=== PATIENT | male | born 1950 | race Caucasian/White ===

== ENCOUNTER 2016-03-16 08:04 | Day surgery (SDC) | payer BC, OTHER ==
[~2016-03-16] VITALS: Ht 170.2 cm; Wt 44.5 kg
[~2016-03-16 08:04] MED LIST: CEFAZOLIN 1 GM IVPB PREMIX 50 ML IV ONE
[2016-03-16 08:40] VITALS: O2SAT 96
[2016-03-16] MEDS ORDERED: LR 1,000 ML IV.SOLN IV ONE (09:00)
[2016-03-16] MEDS ORDERED: NS 1000 ML BAG IV ONE (09:00)
[2016-03-16] MEDS ORDERED: MIDAZOLAM HCL 5 MG/5 ML VIAL IVP ONE (09:00)
[2016-03-16] MEDS ORDERED: ePHEDrine sulfate 50 MG/ML VIAL IV ONE (09:00)
[2016-03-16] MEDS ORDERED: POLYMYXIN 500,000/BACIT.10,000 UNITS in NS IRR 1 L IR ONE (09:03)
[2016-03-16] MEDS ORDERED: LR 1,000 ML IV SCH (09:56)
[2016-03-16] MEDS ORDERED: ONDANSETRON HCL 4 MG/2 ML VIAL IVP PRN (10:00)
[2016-03-16] MEDS ORDERED: D5/0.45 NS 1,000 ML IV SCH (10:08)
[2016-03-16] MEDS ORDERED: HYDROcodone/ACETAMIN 5-325 MG TAB (NORCO/ VICODIN) PO PRN ×2 (10:15)
[2016-03-16] MEDS ORDERED: HYDROmorphone 1 MG INJ. 1 MG/ML AMPUL IVP PRN (10:15)
[2016-03-16 11:28] VITALS: BP 114/77; PULSE 82; RESP 16
[2016-03-16] MEDS ORDERED: HYDROcodone/ACETAMIN 5-325 MG TAB (NORCO/ VICODIN) ONE (15:42)
== END 2016-03-16 17:12 | disposition home or self-care (01) ==
LOC: SDS 08:04 → SMU 08:07 → EDUNIT# 11:05 → EDSTATUS 11:05 → SDS 17:12
PROVIDERS: ATTEND Colon & Rectal Surgery
DX: K40.90 Unilateral inguinal hernia, without obstruction or gangrene, not specified as recurrent (principal); N43.3 Hydrocele, unspecified; J44.9 Chronic obstructive pulmonary disease, unspecified; E46 Unspecified protein-calorie malnutrition; M19.90 Unspecified osteoarthritis, unspecified site; G89.29 Other chronic pain
CPT/HCPCS: 49505; 55500; 88302; C1781; J0690; J2250; J7030; J7120

== ENCOUNTER 2019-02-24 19:07 | Inpatient (IN) | payer BC, OTHER ==
[~2019-02-24] VITALS: Ht 170.2 cm; Wt 44.9 kg
[2019-02-24 19:10] VITALS: BP_SYST 137
--- NOTE | 2019-02-24 19:11 | NUR ---
Placed in room 6 . Placed on quality assurance monitor chassis, blood pressure machine and pulse oximeter. To gown for exam. Side rails up. Report given to JOSE WATOSN.
--- NOTE | 2019-02-24 19:13 | NUR ---
ER at bedside examining patient.
[2019-02-24] MEDS ORDERED: ALBUTEROL SULFATE 0.083% 2.5 MG/3 ML VIAL.NEB INH ONE (19:30)
[2019-02-24] MEDS ORDERED: IPRATROPIUM BROM 0.5 MG/2.5 ML VIAL.NEB (ATROVENT) INH ONE (19:30)
--- NOTE | 2019-02-24 19:31 | NUR ---
RT at bedside.
--- NOTE | 2019-02-24 19:40 | NUR ---
Pt BIB EMS from [facility] with c/o SOB, cough and congestion. Pt family states pt was admitted to [facility] last Wednesday for same reason. Family states pt was discharged today and was at [facility] for "about 3 hours". Pt family states cough and congestion started approximately 1 week ago. Pt denies chest pain, fever, nausea and vomiting. Will continue to monitor.
--- NOTE | 2019-02-24 19:51 | NUR ---
ER Dr. Bell at bedside examining patient.
[2019-02-24 20:01] LABS: BASOPHILS % (AUTO) 0.4 % (0.0-2.0); HEMATOCRIT 39.8 % (36-54); HEMOGLOBIN 12.8 g/dL (14.0-18.0); LYMPHOCYTES # (AUTO) 0.2 K/uL (1.0-5.5); LYMPHOCYTES % (AUTO) 1.3 % (20.5-51.5); MEAN CORPUSCULAR HEMOGLOBIN 29 pg (27-31); MEAN CORPUSCULAR HGB CONC 32 % (32-36); MEAN CORPUSCULAR VOLUME 91 fL (79.0-98.0); MONOCYTES # (AUTO) 0.5 K/uL (0.0-1.0); MONOCYTES % (AUTO) 3.9 % (1.7-9.3); NEUTROPHILS # (AUTO) 11.8 K/uL (1.8-7.7); NEUTROPHILS % (AUTO) 94.4 % (40.0-70.0); PLATELET COUNT (AUTO) 140 K/uL (130-430); RED BLOOD CELL COUNT(AUTO) 4.35 MIL/uL (4.2-6.2); RED CELL DISTRIBUTION WIDTH 14.3 % (9.0-15.0); WHITE BLOOD COUNT (AUTO) 12.5 K/uL (4.8-10.8)
[2019-02-24 20:11] LABS: CALCIUM 8.2 mg/dL (8.4-11.0); CREATININE 0.52 mg/dL (0.55-1.30); POTASSIUM 4.1 mmol/L (3.5-5.1)
[2019-02-24 20:17] LABS: ALBUMIN 2.9 g/dL (3.4-4.8); TOTAL BILIRUBIN 0.2 mg/dL (0.0-1.0)
[2019-02-24] MEDS ORDERED: methylPREDNISolone SOD SUCC/PF 62.5 MG/ML VIAL IVP ONE (20:45)
--- NOTE | 2019-02-24 20:58 | NUR ---
# 18 gauge angiocath placed to Left forearm. Use of asceptic technique. Opsite placed over site. Blood return noted. Flushed with 10 cc of normal saline. No evidence of infiltration noted. Patient tolerated well.
[2019-02-24] MEDS ORDERED: cefTRIAXone 1 GM IVPB PREMIX 50 ML IV ONE (21:15)
--- NOTE | 2019-02-24 21:32 | NUR ---
Lab at bedside.
--- NOTE | 2019-02-24 21:44 | NUR ---
Pt medicated per MD orders. Pt tolerated well. Will continue to monitor.
[2019-02-24] MEDS ORDERED: LOVI40 SQ (22:47)
[2019-02-24] MEDS ORDERED: BISA-79 PO (22:47)
[2019-02-24] MEDS ORDERED: AZIT500T3 IVPB (22:47)
[2019-02-24] MEDS ORDERED: ONDA4TAB5 IVP (22:47)
[2019-02-24] MEDS ORDERED: ROCPM1 IV (22:47)
[2019-02-24] MEDS ORDERED: ALPR0.25 PO (22:47)
[2019-02-24] MEDS ORDERED: ACET-2165 PO (22:47)
[2019-02-24] MEDS ORDERED: TRAM100T34 PO (22:47)
[2019-02-24] MEDS ORDERED: NALO0.4S IVP (22:47)
[2019-02-24] MEDS ORDERED: IPRA3AMP9 INH (22:47)
[2019-02-24] MEDS ORDERED: GUAI-723 PO (22:47)
[2019-02-24] MEDS ORDERED: MORP1SYR2 IVP (22:47)
[2019-02-24] MEDS ORDERED: SOLI40 IVP (22:47)
[2019-02-24] MEDS ORDERED: DILT240C91 PO (22:47)
[2019-02-24] MEDS ORDERED: BECL10.62 INH (22:47)
[2019-02-24] MEDS ORDERED: FAMO20TA8 PO (22:47)
--- NOTE | 2019-02-24 22:47 | NUR ---
Medication reconciliation completed with information provided by Yoni Malik. Any prior medication reconciliation on file was reviewed and corrected.
--- NOTE | 2019-02-24 23:50 | NUR ---
Patient resting quietly with family at bedside. No acute distress noted. Vital signs within normal range. Will continue to monitor.
[2019-02-25] VITALS (21 sets, daily range): BP systolic 91–129
[2019-02-25] MEDS ORDERED: NACL 0.9% 1,000 ML IV ONE
--- NOTE | 2019-02-25 00:54 | NUR ---
Pt medicated per MD orders. Pt tolerated well.
--- NOTE | 2019-02-25 01:46 | NUR ---
Pt transfered to bed 2. Will continue to monitor.
--- NOTE | 2019-02-25 01:54 | NUR ---
RT at bedside putting pt on bipap.
--- NOTE | 2019-02-25 02:57 | NUR ---
Patient will be admitted to [facility]. Admitted to ICU unit. Will go to room 6. Belongings list completed. Complete and up to date summary report printed. SBAR report to be given at bedside with opportunity for questions.
--- NOTE | 2019-02-25 02:57 | NUR ---
Transfer to ICU bed 6 via ACLS protocol. Licensed nurse present. IV present no signs or symptoms of infiltration.
--- NOTE | 2019-02-25 03:15 | NUR ---
Received patient from ER via gurney. Report received from ER nurse. Patient connected to director special education, repositioned for comfort and initial vital signs taken. L FA IV site noted patent. RT at bedside to place patient on bipap with settings I 11, E 4, Rate 14 , FIO2 100% via face mask. Dr Saab at bedside for initial assessment as primary physician. call light within reach, bed set at lowest settings. will continue to monitor as per MD orders.
[2019-02-25] MEDS ORDERED: ALBUTEROL SULFATE 0.083% 2.5 MG/3 ML VIAL.NEB INH PRN (04:00)
[2019-02-25] MEDS ORDERED: ACETAMINOPHEN 325 MG TABLET PO SCH (04:00)
[2019-02-25] MEDS ORDERED: BISACODYL 5 MG TABLET.DR (DULCOLAX) PO PRN (05:00)
--- NOTE | 2019-02-25 06:24 | NUR ---
Tolerating bipap settings with 100 % saturations. easy to arouse and responding to verbal commands. Condom catheter in place draining yellow urine. will continue to monitor.
[2019-02-25 06:49] LABS: BASOPHILS % (AUTO) 0.1 % (0.0-2.0); HEMATOCRIT 33.7 % (36-54); HEMOGLOBIN 11.1 g/dL (14.0-18.0); LYMPHOCYTES # (AUTO) 0.2 K/uL (1.0-5.5); LYMPHOCYTES % (AUTO) 1.5 % (20.5-51.5); MEAN CORPUSCULAR HEMOGLOBIN 30 pg (27-31); MEAN CORPUSCULAR HGB CONC 33 % (32-36); MEAN CORPUSCULAR VOLUME 92 fL (79.0-98.0); MONOCYTES # (AUTO) 0.5 K/uL (0.0-1.0); MONOCYTES % (AUTO) 4.3 % (1.7-9.3); NEUTROPHILS # (AUTO) 10.2 K/uL (1.8-7.7); NEUTROPHILS % (AUTO) 94.1 % (40.0-70.0); PLATELET COUNT (AUTO) 123 K/uL (130-430); RED BLOOD CELL COUNT(AUTO) 3.68 MIL/uL (4.2-6.2); RED CELL DISTRIBUTION WIDTH 13.8 % (9.0-15.0); WHITE BLOOD COUNT (AUTO) 10.8 K/uL (4.8-10.8)
[2019-02-25] MEDS: methylPREDNISolone SOD SUCC 40 MG/ML VIAL IVP SCH ×3 (06:55→18:27)
--- NOTE | 2019-02-25 07:15 | NUR ---
Endorsed report and patient, patient in no acute distress. Side rails x 3 up. Call light with in reach.
[2019-02-25 08:18] LABS: ALBUMIN 2.4 g/dL (3.4-4.8); CALCIUM 7.8 mg/dL (8.4-11.0); CREATININE 0.48 mg/dL (0.55-1.30); POTASSIUM 4.1 mmol/L (3.5-5.1); TOTAL BILIRUBIN 0.2 mg/dL (0.0-1.0)
--- NOTE | 2019-02-25 08:40 | NUR ---
Nutrition Update Chai Scale 15 noted. Pt admitted for respiratory failure. Diet: 2 gm Na BMI: 15.5 kg/m2 RD to follow per nutrition care standards.
--- NOTE | 2019-02-25 08:50 | NUR ---
RT NOTES - 30%FIO2 DECREASED FIO2 FROM 75% TO 30% BASED ON AM ABG RESULT. SHIRLEY OLSON MADE AWARE.
[2019-02-25] MEDS ORDERED: FAMOTIDINE 20 MG TABLET PO SCH (09:00)
[2019-02-25] MEDS: guaiFENesin/DEXTROMETHORPHAN 1 EACH TAB.ER.12H PO SCH ×2 (09:00→21:57)
--- NOTE | 2019-02-25 09:30 | NUR ---
Reported to MD Stewart patient in ability to take medications due to bipap, new order to hold off medications till off Bipap, to change pepcid po to ivp 20 mg twice a day. Orders placed.
[2019-02-25] MEDS ORDERED: BUDESONIDE 0.5 MG/2 ML AMPUL.NEB INH ONE (10:30)
[2019-02-25] MEDS: DILTIAZEM HCL 240 MG CAP.SR.24H PO SCH (11:00)
[2019-02-25] MEDS: ALPRAZolam 0.25 MG TABLET PO PRN (11:01)
[2019-02-25] MEDS: AZITHROMYCIN 500 MG in NS 250 ML IV SCH (11:01)
[2019-02-25] MEDS: ENOXAPARIN SODIUM 40 MG/0.4 ML SYRINGE SQ SCH (11:02)
[2019-02-25] MEDS: ONDANSETRON HCL 4 MG/2 ML VIAL IVP PRN (11:02)
[2019-02-25] MEDS: IPRATROPIUM/ALBUTEROL SULFATE 3 ML AMPUL.NEB (DUONEB) INH PRN (11:04)
[2019-02-25] MEDS: HYDROcodone/ACETAMIN 10-325 MG TAB PO PRN (12:24)
[2019-02-25] MEDS ORDERED: FAMOTIDINE PF 20 MG/2 ML VIAL IVP ONE ×2 (12:30→21:00)
--- NOTE | 2019-02-25 12:30 | NUR ---
Patient complaining of pain from IV line when normal saline flushed or ABT running through, patient requesting PICC line. MD Stewart notified, orders approved. PICC nurse notified.
[2019-02-25] MEDS: FAMOTIDINE PF 20 MG/2 ML VIAL IVP SCH (12:33)
[2019-02-25] MEDS ORDERED: KETOROLAC TROMETHAMINE 30 MG VIAL IVP PRN (12:45)
[2019-02-25 13:13] LABS: AMYLASE 82 U/L (0-100); LIPASE 439 U/L (73-393)
--- NOTE | 2019-02-25 15:40 | NUR ---
PICC line consent signed.
--- NOTE | 2019-02-25 16:30 | NUR ---
PICC line placed on right upper arm.
--- NOTE | 2019-02-25 18:45 | NUR ---
Patient requesting mckeon catheter originally offered in ER, will endorse to NOC shift nurse.
[2019-02-25] MEDS ORDERED: BUDESONIDE 0.5 MG/2 ML AMPUL.NEB INH SCH (19:00)
--- NOTE | 2019-02-25 19:25 | NUR ---
Gave report and patient to oncoming shift, patient in no acute distress. Side rails x 3 up. Call light with in reach. Addendum: 02/25/19 at 3 by Vianca Clinton RN Reported patient's request for mckeon catheter insertion originally offered at ER.
--- NOTE | 2019-02-25 19:40 | NUR ---
initial note PM Received patient after report from day shift nurse Savannah WATSON. Patient resting in bed with eyes closed. Following commands and able to verbalize complaints. Denies pain at this time, repositioned for comfort. Family at bedside x2. In nasal canula 3 L/min and tolerating well. Orders to use bipap at night. Condom catheter in place draining yellow urine to gravity. Picc line in place LANCE with dressing CDI. Call light within reach; bed at lowest settings; repositioned for comfort. will continue to monitor patient as per unit protocol.
[2019-02-25] MEDS ORDERED: cefTRIAXone 1 GM IVPB PREMIX 50 ML IV SCH (22:00)
[2019-02-25] MEDS: CEFTRIAXONE SOD 1 GM/ D5W 50 ML IV SCH ×2 (22:00)
--- NOTE | 2019-02-25 22:15 | NUR ---
complying with treatment. No signs of respiratory decompensation noted as patient tolerating bipap settings. family going home; contact information in chart. will continue to monitor.
[2019-02-26] VITALS (24 sets, daily range): BP systolic 12–137
[2019-02-26] MEDS: methylPREDNISolone SOD SUCC 40 MG/ML VIAL IVP SCH ×2 (01:54→06:17)
--- NOTE | 2019-02-26 02:00 | NUR ---
Resting comfortably in bed. Tolerating Bipap settings. Easy to arouse and following commands with no signs of confusion noted. Patient was repositioned for comfort without any signs of discomfort or distress. will continue to monitor.
--- NOTE | 2019-02-26 05:00 | NUR ---
Condom catheter became dislodged and urine spilled. patient was given CHG bath and perineal care provided. New condom catheter was placed with patient tolerating procedure well. Bipap was discontinued at this time as per patient's request and nasal canula @ 3 L/min placed instead. O 2 saturations 100% and patient denies respiratory discomfort. Will continue to monitor per unit protocol.
[2019-02-26] MEDS: AZITHROMYCIN 500 MG in NS 250 ML IV SCH (06:18)
[2019-02-26 06:46] LABS: ALBUMIN 2.6 g/dL (3.4-4.8); CALCIUM 7.9 mg/dL (8.4-11.0); CREATININE 0.44 mg/dL (0.55-1.30); POTASSIUM 4.4 mmol/L (3.5-5.1); TOTAL BILIRUBIN 0.3 mg/dL (0.0-1.0)
[2019-02-26 06:52] LABS: BASOPHILS % (AUTO) 0.1 % (0.0-2.0); HEMATOCRIT 37.2 % (36-54); LYMPHOCYTES # (AUTO) 0.2 K/uL (1.0-5.5); LYMPHOCYTES % (AUTO) 1.6 % (20.5-51.5); MEAN CORPUSCULAR HEMOGLOBIN 30 pg (27-31); MEAN CORPUSCULAR HGB CONC 32 % (32-36); MEAN CORPUSCULAR VOLUME 92 fL (79.0-98.0); MONOCYTES # (AUTO) 0.4 K/uL (0.0-1.0); MONOCYTES % (AUTO) 3.2 % (1.7-9.3); NEUTROPHILS # (AUTO) 11.6 K/uL (1.8-7.7); NEUTROPHILS % (AUTO) 95.1 % (40.0-70.0); PLATELET COUNT (AUTO) 132 K/uL (130-430); RED BLOOD CELL COUNT(AUTO) 4.04 MIL/uL (4.2-6.2); RED CELL DISTRIBUTION WIDTH 13.5 % (9.0-15.0); WHITE BLOOD COUNT (AUTO) 12.2 K/uL (4.8-10.8)
--- NOTE | 2019-02-26 07:03 | NUR ---
call out for Dr Fleming Received report from lab CO2 43. Previous CO2 40. Call out to Dr Fleming to report abnormal labs.
[2019-02-26] MEDS: HYDROcodone/ACETAMIN 10-325 MG TAB PO PRN (08:00)
--- NOTE | 2019-02-26 08:00 | NUR ---
AM ASSESSMENT. PT ALERT, ON O2 VIA NASAL CANNULA, PT PREFERS TO USE THIS THRU HIS MOUTH, VERBALIZED PAIN TO LOWER BACK, OFFERED PAIN PILL, TOOK 1 TABLET OF NORCO 5/325 MG FOR SCALE OF 7/10. PT ENCOURAGED TO CHANGE HIS POSITION WHILE IN BED, POSSIBLY SIDE LYING. PT GAVE A SWEET SMILE.
[2019-02-26] MEDS: ENOXAPARIN SODIUM 40 MG/0.4 ML SYRINGE SQ SCH (09:05)
[2019-02-26] MEDS: FAMOTIDINE PF 20 MG/2 ML VIAL IVP SCH ×2 (09:06→20:54)
[2019-02-26] MEDS: DILTIAZEM HCL 240 MG CAP.SR.24H PO SCH (09:07)
[2019-02-26] MEDS: guaiFENesin/DEXTROMETHORPHAN 1 EACH TAB.ER.12H PO SCH ×2 (09:08→20:54)
[2019-02-26] MEDS: IPRATROPIUM/ALBUTEROL SULFATE 3 ML AMPUL.NEB (DUONEB) INH PRN (10:03)
--- NOTE | 2019-02-26 10:30 | NUR ---
MANAGER BABY. DR CHING AT BEDSIDE EXAMINING PT.
[2019-02-26 11:18] LABS: ALBUMIN 2.6 g/dL (3.4-4.8); CALCIUM 8.1 mg/dL (8.4-11.0); CREATININE 0.52 mg/dL (0.55-1.30); POTASSIUM 4.1 mmol/L (3.5-5.1); TOTAL BILIRUBIN 0.3 mg/dL (0.0-1.0)
--- NOTE | 2019-02-26 12:20 | NUR ---
TEST. PT HAVING AN ECHOCARDIOGRAM AT HIS HOUR.
[2019-02-26] MEDS: methylPREDNISolone SOD SUCC/PF 62.5 MG/ML VIAL IVP SCH ×2 (13:32→21:53)
--- NOTE | 2019-02-26 13:46 | NUR ---
FAMILY. PT SURROUNDED BY HIS FAMILY. SOME BROUGHT HIM SNACK BAG.
--- NOTE | 2019-02-26 18:00 | NUR ---
DIET. SERVED PT HIS DINNER TRAY, PT SAT UP IN THE BED, THEN HE STARTED TO TASTE SOME FROM THE PLATE.
--- NOTE | 2019-02-26 18:40 | NUR ---
O2. PT COMPLAINED THAT HE'S NOT FEELING OK, SET UP BIPAP, R.T. AT BEDSIDE, PT ALLOWED TO USE BIPAP.
--- NOTE | 2019-02-26 19:30 | NUR ---
PM SHIFT ASSESSMENT Pt is alert and oriented. O2 via BIPAP, RR even and unlabored. SR noted on monitor. Skin warm and dry. LANCE PICC line with TKO infusing. Condom cath in place and draining to gravity. Safety precautions in place, call light within reach. Family at bedside. Will continue to monitor.
[2019-02-26] MEDS: ALPRAZolam 0.25 MG TABLET PO PRN (20:54)
[2019-02-26] MEDS: CEFTRIAXONE SOD 1 GM/ D5W 50 ML IV SCH ×2 (21:53)
[2019-02-27] VITALS (24 sets, daily range): BP systolic 90–144
[2019-02-27] MEDS: methylPREDNISolone SOD SUCC/PF 62.5 MG/ML VIAL IVP SCH ×3 (05:33→21:54)
[2019-02-27] MEDS: AZITHROMYCIN 500 MG in NS 250 ML IV SCH (05:34)
[2019-02-27 06:38] LABS: BASOPHILS % (AUTO) 0.2 % (0.0-2.0); HEMOGLOBIN 11.4 g/dL (14.0-18.0); LYMPHOCYTES # (AUTO) 0.2 K/uL (1.0-5.5); LYMPHOCYTES % (AUTO) 1.5 % (20.5-51.5); MEAN CORPUSCULAR HEMOGLOBIN 30 pg (27-31); MEAN CORPUSCULAR HGB CONC 33 % (32-36); MEAN CORPUSCULAR VOLUME 92 fL (79.0-98.0); MONOCYTES # (AUTO) 0.4 K/uL (0.0-1.0); NEUTROPHILS # (AUTO) 11.8 K/uL (1.8-7.7); NEUTROPHILS % (AUTO) 95.3 % (40.0-70.0); PLATELET COUNT (AUTO) 122 K/uL (130-430); RED BLOOD CELL COUNT(AUTO) 3.82 MIL/uL (4.2-6.2); RED CELL DISTRIBUTION WIDTH 13.6 % (9.0-15.0); WHITE BLOOD COUNT (AUTO) 12.3 K/uL (4.8-10.8)
--- NOTE | 2019-02-27 07:01 | NUR ---
Nutrition Update Chai Scale 16 noted. Pt admitted for Respiratory failure Diet: 2gm Na BMI: 15.5 kg/m2 RD to follow per nutrition care standards.
--- NOTE | 2019-02-27 07:09 | NUR ---
ENDORSEMENT Pt care endorsed to dayshift RN using nursing SBAR.
[2019-02-27 07:11] LABS: ALANINE AMINOTRANSFERASE 130 U/L (12-78); ALBUMIN 2.3 g/dL (3.4-4.8); ASPARTATE AMINOTRANSFERASE 23 U/L (10-37); CHLORIDE 104 mmol/L (98-107); CREATININE 0.32 mg/dL (0.55-1.30); GLUCOSE 126 mg/dL (70-99); POTASSIUM 4.4 mmol/L (3.5-5.1); SODIUM SERUM 143 mmol/L (136-145); TOTAL BILIRUBIN 0.2 mg/dL (0.0-1.0); UREA NITROGEN, BLOOD 25 mg/dL (8-21)
[2019-02-27 07:20] LABS: GFR AFRICAN AMERICAN 355 mL/min (>90)
[2019-02-27 07:21] LABS: ANION GAP < 3 (5-15)
--- NOTE | 2019-02-27 08:00 | NUR ---
PT AWAKE AND ALERT WHEN SEEN, NOT IN ACUTE DISTRESS. SPO2 GOOD ON O2 3L/MIN VIA NC. SINUS RHYTHM ON THE MONITOR. DENIES ANY DISCOMFORT.
--- NOTE | 2019-02-27 09:00 | NUR ---
Abdominal Ultrasound done.
[2019-02-27] MEDS: FAMOTIDINE PF 20 MG/2 ML VIAL IVP SCH ×2 (09:49→20:16)
[2019-02-27] MEDS: DILTIAZEM HCL 240 MG CAP.SR.24H PO SCH (09:50)
[2019-02-27] MEDS: ENOXAPARIN SODIUM 40 MG/0.4 ML SYRINGE SQ SCH (09:51)
[2019-02-27] MEDS: guaiFENesin/DEXTROMETHORPHAN 1 EACH TAB.ER.12H PO SCH ×2 (09:51→20:16)
--- NOTE | 2019-02-27 10:30 | NUR ---
Family at bedside, updated on pt present condition. Pt assisted with breakfast.
--- NOTE | 2019-02-27 11:30 | NUR ---
Received report from Kemi WATSON. Assessment done. Pt is awake, alert and oriented. Respiration is regular, SOB on exertion. O2 at 3L/NC.Scope shows NSR, no ectopics. Condom cath in place and draining well. Family at bedside.
--- NOTE | 2019-02-27 13:28 | NUR ---
Dietitian Recommendations *Continue 2gm Na diet per MD. *Consider supplemental PPN to meet estimated needs and promote weight gain. Please see Nutritional Assessment for details. FERNANDA, RD
[2019-02-27] MEDS: ALBUTEROL SULFATE 0.083% 2.5 MG/3 ML VIAL.NEB INH SCH ×2 (14:01→19:37)
[2019-02-27] MEDS: IPRATROPIUM BROM 0.5 MG/2.5 ML VIAL.NEB (ATROVENT) INH SCH ×2 (14:07→19:37)
--- NOTE | 2019-02-27 14:16 | NUR ---
[employer] Supervisor: met with pt. to conduct a Discharge Summary. AGRICULTURAL PRODUCE PACKER met with pt. who had a friend visiting. Pt stated he was up for some questions. During interview, pt. stated he wants to get back on his feet, go back home and have more muscle mass as he feels weak. Pt. wants to feel his strength back. He stopped walking 9 days ago. Pt. wants to get back on his feet. Pt. stated he may need oxygen at his home upon D/C. When AGRICULTURAL PRODUCE PACKER asked pt. about mental health and if he had any Dx., pt. stated his PCP had prescribed him medication as he had been Dx. with Depression. Pt stated he had been Dx. with Depression last year and was prescribed prozact, but no longer takes it. She added he had been recently Dx. with Axiety, but prescribed him another medication. He stated he continues to take if. Pt. said he feels as though he needs to be back on his medication for Depression and if he does go back on it, he will need the medication for anxiety. AGRICULTURAL PRODUCE PACKER noticed pt. was breathing a little labored. Pt. stated all of AGRICULTURAL PRODUCE PACKER's questions have stressed him out. AGRICULTURAL PRODUCE PACKER spoke calmly to him and stated he was done. AGRICULTURAL PRODUCE PACKER thanked him for all his assistance and told him she was leaving so he can rest. Pt. did not have any questions. AGRICULTURAL PRODUCE PACKER mentioned this info to his Rn.Angie, that pt. was feeling stressed as well as having a Dx. with Depression and Anxiety. Shaw agreed to pass on the info the re. Addendum: 02/27/19 at 1427 by Helena Krishnan MSW [employer] Supervisor:batsheva AGRICULTURAL PRODUCE PACKER had asked pt. if he had ever felt like harming himself. Pt. stated he had never felt that way.
--- NOTE | 2019-02-27 14:25 | NUR ---
Patient complained of having difficulty of breathing, using accessory muscles, RT at bedside, placed pt on BIPAP. Instructed pt to take slow deep breathes.Repositions self.
--- NOTE | 2019-02-27 16:30 | NUR ---
Daughter at bedside. Pt stated he's breathing better, requested to remove BIPAP, placed back on 3L/NC.
--- NOTE | 2019-02-27 18:00 | NUR ---
TAKING REST PERIODS IN BETWEEN BITES DURING MEAL. O2 SAT >95%. URINE OUTPUT ADEQUATE. NSR, NO ECTOPICS.
--- NOTE | 2019-02-27 19:55 | NUR ---
Opening Note Pt in bed AAO. SR/ST on the monitor. Pt is on 3L NC, C/O of difficulty breathing, RT called for breathing Tx. Pt has LANCE PICC in place, and LFA 20g noted. IV sites C/D/I. No s/s of infiltration noted. Pt has condom catheter in place, no leakage noted. No c/o of pain at this time. Bed locked in lowest position, call light in reach and safety precautions in place. Will continue to monitor.
[2019-02-27] MEDS: ALPRAZolam 0.25 MG TABLET PO PRN (20:16)
--- NOTE | 2019-02-27 20:25 | NUR ---
Pt received breathing Tx, tolerated well. Pulled up in bed and readjusted. No s/s of distress noted. Pt not c/ o of difficulty breathing at this time. Will continue to monitor.
[2019-02-27] MEDS: CEFTRIAXONE SOD 1 GM/ D5W 50 ML IV SCH ×2 (21:54)
[2019-02-28] VITALS (16 sets, daily range): BP systolic 97–148
--- NOTE | 2019-02-28 00:12 | NUR ---
RN Rounds Pt in bed asleep. No s/s of distress noted. VSS, w/ HR elevating into the 110-120s periodically. Pt remains asymptomatic. Denies any SOB, or CP. Currently on 3L NC. Will continue to monitor.
[2019-02-28] MEDS: IPRATROPIUM BROM 0.5 MG/2.5 ML VIAL.NEB (ATROVENT) INH SCH ×2 (01:00→20:07)
[2019-02-28] MEDS: ALBUTEROL SULFATE 0.083% 2.5 MG/3 ML VIAL.NEB INH SCH ×2 (01:00→20:07)
--- NOTE | 2019-02-28 03:16 | NUR ---
RN Rounds Pt in bed asleep. No s/s of distress noted. Pt VSS. Tolerating NC @3L well. Will continue to monitor.
[2019-02-28 06:03] LABS: CHLORIDE 103 mmol/L (98-107); CREATININE 0.45 mg/dL (0.55-1.30); GLUCOSE 129 mg/dL (70-99); POTASSIUM 4.1 mmol/L (3.5-5.1); SODIUM SERUM 139 mmol/L (136-145); UREA NITROGEN, BLOOD 28 mg/dL (8-21)
[2019-02-28] MEDS: AZITHROMYCIN 500 MG in NS 250 ML IV SCH (06:06)
[2019-02-28] MEDS: HYDROcodone/ACETAMIN 10-325 MG TAB PO PRN (06:07)
[2019-02-28] MEDS: methylPREDNISolone SOD SUCC/PF 62.5 MG/ML VIAL IVP SCH ×3 (06:07→21:39)
--- NOTE | 2019-02-28 06:23 | NUR ---
Closing Note Pt in bed, AAO. SR/ST on the monitor. Pt on 3L NC, no s/s of distress noted. Pt has LANCE PICC LINE and Peripheral IV. No s/s of infiltration noted. Pt has condom catheter in place, draining urine to gravity. PRN Pain medication given for leg pain and chronic back pain. Pt able to make needs known. Skin intact. Bed locked in lowest position, call light in reach, and safety preacautions in place. Will endorse to oncoming RN.
[2019-02-28 06:28] LABS: ANION GAP < 3 (5-15); GFR AFRICAN AMERICAN 239 mL/min (>90)
--- NOTE | 2019-02-28 07:13 | NUR ---
RECEIVED NURSING REPORT FROM AGUSTINA KOO R.N
--- NOTE | 2019-02-28 07:19 | NUR ---
Endorsement Report given to oncoming RN at bedside via SBAR approach.
--- NOTE | 2019-02-28 08:35 | NUR ---
SEE PATIENT, ORDERED DOWN GRADE TO TELE STATUS
[2019-02-28] MEDS: DILTIAZEM HCL 240 MG CAP.SR.24H PO SCH (09:00)
[2019-02-28] MEDS: guaiFENesin/DEXTROMETHORPHAN 1 EACH TAB.ER.12H PO SCH ×2 (09:13→20:28)
[2019-02-28] MEDS: FAMOTIDINE PF 20 MG/2 ML VIAL IVP SCH ×2 (09:14→20:15)
[2019-02-28] MEDS: ENOXAPARIN SODIUM 40 MG/0.4 ML SYRINGE SQ SCH (09:16)
--- NOTE | 2019-02-28 11:13 | NUR ---
GIVE COMPLETE NURSING REPORT TO MED-SURG IRVING Marshall ORDERED TRANSFER PATIENT TO TELE BED 102 A
--- NOTE | 2019-02-28 11:35 | NUR ---
Routine Patient transferred to unit in stable condition with daughters (x2) at bedside.
--- NOTE | 2019-02-28 14:05 | NUR ---
Routine Patient resting quietly in bed with no respiratory distress noted. Scheduled medication given. Left forearm skin tear cleansed with NS, sure prep applied to periwound, hydrogel applied to wound, then covered with non-adhesive foam dressing and kerlix. Patient tolerated well. Daughter at bedside. Addendum: 02/28/19 at 1419 by Marianela Tinoco RN Patient prefers to be in supine position. Explained benefits of repositioning every two hours; patient and daughter verbalized understanding. Foam protection pad placed on coccyx earlier.
--- NOTE | 2019-02-28 15:15 | NUR ---
Patient received a/ox4, denies pain, denies shortness of breath, patient's family is at bedside, instructed the patient chip person light use, he verbalized understanding, call light placed within reach, fall and aspiration precautions in place.
--- NOTE | 2019-02-28 17:29 | NUR ---
RN rounds patient resting in bed, patient denies pain, no signs of distress, however, patient complains of difficulty swallowing even with drinking water, Dr. Saab paged for further orders, will follow up as needed. Patient has no other complaints and denies difficulty with breathing, continuing to monitor, bed in lowest position, three side rails up, bed alarm on, fall and aspiration precautions in place, call light is within patient reach.
--- NOTE | 2019-02-28 17:55 | NUR ---
Spoke with the patient's daughter regarding her father's new complaint about difficulty swallowing and informed her that Dr. Saab was paged and awaiting call back, patient's daughter verbalized understanding.
--- NOTE | 2019-02-28 18:39 | NUR ---
Second page for Dr. Saab for orders.
[2019-02-28] MEDS: ALPRAZolam 0.25 MG TABLET PO PRN (20:15)
[2019-02-28] MEDS: CEFTRIAXONE SOD 1 GM/ D5W 50 ML IV SCH ×2 (22:11)
[2019-02-28] MEDS ORDERED: cefTRIAXone 1 GM IVPB PREMIX 50 ML IV ONE (22:14)
--- NOTE | 2019-02-28 23:00 | NUR ---
Pt began shift anxious and wanting "all his meds" per family. Pt medicated with his routinely scheduled medications along with xanax for anxiety. Medication appears to relaxed pt to point of sleeping with HR eventually lowering to mid 90's.
[2019-03-01] MEDS: ALBUTEROL SULFATE 0.083% 2.5 MG/3 ML VIAL.NEB INH SCH ×3 (00:32→13:00)
[2019-03-01] MEDS: IPRATROPIUM BROM 0.5 MG/2.5 ML VIAL.NEB (ATROVENT) INH SCH ×3 (00:33→13:00)
[2019-03-01 04:38] VITALS: BP_SYST 132
--- NOTE | 2019-03-01 04:44 | NUR ---
SWALLOWED SWALLOWED EVALUATION WAS CALLED LEFT A MESSAGE IN [facility]
[2019-03-01] MEDS: methylPREDNISolone SOD SUCC/PF 62.5 MG/ML VIAL IVP SCH (05:32)
[2019-03-01] MEDS ORDERED: AZITHROMYCIN 500 MG/VIAL (ZITHROMAX) IV ONE (06:30)
[2019-03-01] MEDS: AZITHROMYCIN 500 MG in NS 250 ML IV SCH (06:44)
[2019-03-01 07:40] VITALS: BP_SYST 129
--- NOTE | 2019-03-01 07:40 | NUR ---
Opening note patient resting in bed, a/ox4, denies pain, denies shortness of breath, patient is eating breakfast - he is not coughing and not expressing difficulty to swallow - informed patient of need for NPO for safety and pending swallow evaluation for today - educated him aspiration risk, he verbalized understanding and would like to continue to eat, continuing to monitor, placed head of bed in high fowlers for safety, PICC line intact and infusing well, catheter in place, draining to gravity, educated the patient reception agent light system and plan of care, he verbalized understanding, bed in lowest position, three side rails up, bed alarm on, call light within reach, fall precautions also in place.
[2019-03-01] MEDS: FAMOTIDINE PF 20 MG/2 ML VIAL IVP SCH ×2 (08:47→20:40)
[2019-03-01] MEDS: DILTIAZEM HCL 240 MG CAP.SR.24H PO SCH (08:47)
[2019-03-01] MEDS: guaiFENesin/DEXTROMETHORPHAN 1 EACH TAB.ER.12H PO SCH ×2 (08:47→20:38)
[2019-03-01] MEDS: ENOXAPARIN SODIUM 40 MG/0.4 ML SYRINGE SQ SCH (08:48)
--- NOTE | 2019-03-01 08:50 | NUR ---
Medication patient resting in bed, awake, denies pain, denies shortness of breath at this time, educated the patient on medications uses and potential side effects, he verbalized understanding, patient was able to swallow one pill at a time very slowly and without coughing, PICC line is patent and infusing well, patient has no other needs at this time, continuing to monitor, bed in lowest position, three side rails up, bed alarm on, bed close to nursing station, fall and aspiration precautions in place, call light placed within reach.
[2019-03-01] MEDS: IPRATROPIUM/ALBUTEROL SULFATE 3 ML AMPUL.NEB (DUONEB) INH PRN (10:12)
--- NOTE | 2019-03-01 11:05 | NUR ---
RN rounds patient resting in bed, awake, denies pain, states his breathing is better after physical therapy, during physical therapy the patient desaturated on 2L via nasal cannula and had shortness of breath, patient received a breathing treatment and now at rest his breathing is even and unlabored, patient is on 2L via nasal cannula, O2 saturation is 95% at this time, patient has no other needs at this time, continuing to monitor, bed in lowest position, three side rails up, bed alarm on, bed close to nursing station, fall and aspiration precautions in place.
--- NOTE | 2019-03-01 11:10 | NUR ---
Dr. Fleming rounds assessed patient, informed her of patient status and desaturation during physical therapy, also informed of patient complaint of difficulty swallowing and nurse assessed patient during breakfast and medication administration, Dr. Fleming called the family to give updates, apparently the patient would like a Hospice Evaluation and the family would like the patient to stay in the hospital for one more day, will inform Dr. Ramirez as well.
[2019-03-01 11:17] VITALS: BP_SYST 134
--- NOTE | 2019-03-01 11:27 | NUR ---
Spoke with Dr. Ramirez regarding family and patient wishes, Dr. Ramirez will speak to the family.
--- NOTE | 2019-03-01 11:35 | NUR ---
Speech Therapist at bedside at this time.
--- NOTE | 2019-03-01 11:45 | NUR ---
Dr. Ramirez at [facility] spoke with the patient and family regarding plan of care and options for hospice, patient and family member verbalized understanding.
--- NOTE | 2019-03-01 11:59 | NUR ---
S.T. SWALLOW EVAL SWALLOW EVAL COMPLETED. PT'S [id number] PRESENT. PT PRESENTS W/ PT PRESENTS W/ MOD OROPHARYNGEAL DYSPHAGIA MOSTLY R/T HIS SEVERE LABOR OF BREATHING. DYSPHAGIA IS CHARACTERIZED BY RAPID TRANSFER OF BOLUS TO ACCOMMODATE NEED FOR BREATHING. NO S/S OF ASPIRATION BUT RISK PRESENT D/T RESPIRATORY STATUS. REC: PUREE DIET. THIN LIQUIDS OK. DIETARY CONSULT FOR SMALLER, MORE FREQUENT MEALS. REST TO BREATHE BETWEEN BITES/SIPS. PT IN AGREEMENT W/ RESULTS AND REC. NURSE ANITRA NOTIFIED. G8996 CK G8997 CK G8998 CK NOMS LEVEL 4
[2019-03-01] MEDS: HYDROcodone/ACETAMIN 10-325 MG TAB PO PRN (12:23)
[2019-03-01] MEDS: ALPRAZolam 0.25 MG TABLET PO PRN (12:27)
--- NOTE | 2019-03-01 12:39 | NUR ---
Discharge Planning: SKILLED LABOR placed call to Aaliyah ([phone]) to alert her of hospice evaluation; SKILLED LABOR left a message.
--- NOTE | 2019-03-01 13:24 | NUR ---
RN rounds patient resting in bed, eyes closed, breathing is even and unlabored, no signs of distress, easy to wake, patient states pain has improved, has no other needs at this time, continuing to monitor him, bed in lowest position, three side rails up, bed alarm on, bed close to nursing station, fall and aspiration precautions in place.
--- NOTE | 2019-03-01 14:57 | NUR ---
RN rounds patient resting in bed, eyes closed, breathing is even and unlabored, no signs of distress, easy to wake, has no other needs at this time, continuing to monitor him, bed in lowest position, three side rails up, bed alarm on, bed close to nursing station, fall and aspiration precautions in place.
[2019-03-01 15:12] VITALS: BP_SYST 116
--- NOTE | 2019-03-01 16:25 | NUR ---
RN rounds patient is resting in bed, eyes closed, breathing is even and unlabored, no signs of distress, continuing to monitor patient, PICC line is patent, no s/s of infiltration, bed in lowest position, three side rails up, call light within patient reach, fall and aspiration precautions in place, a visitor is at bedside.
--- NOTE | 2019-03-01 17:32 | NUR ---
Paged Dr. Ramirez patient requesting for Xanax 0.25mg PO to be changed from Q12H PRN to TID PRN as this is how often the patient normally takes at home and this is the frequency that works for him.
--- NOTE | 2019-03-01 18:02 | NUR ---
Hospice Rep Norma, Irs Agent from [facility] here to meet with the patient and his family; RN standing by for assistance.
--- NOTE | 2019-03-01 18:34 | NUR ---
Closing note patient resting in bed, awake, denies pain, denies shortness of breath, patient is attempting to eat dinner, aspiration precautions in place, all needs met, will endorse report to NOC shift nurse, patient's family is at the bedside, bed in lowest position, three side rails up, call light within reach, fall precautions also in place.
[2019-03-01] MEDS: ONDANSETRON HCL 4 MG/2 ML VIAL IVP PRN (20:41)
[2019-03-01] MEDS: PREDNISONE 20 MG TABLET PO SCH (20:41)
[2019-03-01] MEDS: CEFTRIAXONE SOD 1 GM/ D5W 50 ML IV SCH ×2 (22:13)
[2019-03-02 01:04] VITALS: BP_SYST 120
[2019-03-02] MEDS: ALPRAZolam 0.25 MG TABLET PO PRN ×2 (01:28→14:00)
[2019-03-02] MEDS: HYDROcodone/ACETAMIN 10-325 MG TAB PO PRN ×2 (01:29→14:00)
--- NOTE | 2019-03-02 02:14 | NUR ---
Assumed nursing care of pt from nurse Morrison.
--- NOTE | 2019-03-02 04:00 | NUR ---
Pt is sleeping comfortably in bed. O2 sat 96% on O2 at 2L/min per NC. Fall and safety precautions are in place. Call light is with pt and bed alarm is on.
--- NOTE | 2019-03-02 06:30 | NUR ---
Pt is awake and resting comfortably in bed. All pt's needs were attended to. Will endorse to day shift nurse.
[2019-03-02] MEDS: ALBUTEROL SULFATE 0.083% 2.5 MG/3 ML VIAL.NEB INH SCH ×3 (07:00→19:00)
[2019-03-02] MEDS: IPRATROPIUM BROM 0.5 MG/2.5 ML VIAL.NEB (ATROVENT) INH SCH ×3 (07:00→19:00)
--- NOTE | 2019-03-02 07:15 | NUR ---
Opening Note Patient sleeping at this time with no signs of distress and no complaints of pain. Patient states he is sleepy and wants to rest. Patient able to communicate. Patient with PICC line saline-locked at this time. Safety precautions enforced. Bed at lowest position.
[2019-03-02 08:00] VITALS: BP_SYST 123
[2019-03-02] MEDS: FAMOTIDINE PF 20 MG/2 ML VIAL IVP SCH ×2 (08:36→21:18)
[2019-03-02] MEDS: PREDNISONE 20 MG TABLET PO SCH ×2 (08:38→21:18)
[2019-03-02] MEDS: DILTIAZEM HCL 240 MG CAP.SR.24H PO SCH (08:38)
[2019-03-02] MEDS: guaiFENesin/DEXTROMETHORPHAN 1 EACH TAB.ER.12H PO SCH ×2 (08:38→21:18)
[2019-03-02] MEDS: ENOXAPARIN SODIUM 40 MG/0.4 ML SYRINGE SQ SCH (08:40)
[2019-03-02] MEDS: HYDROcodone/ACETAMIN 5-325 MG TAB (NORCO/ VICODIN) PO PRN ×2 (08:51→18:42)
--- NOTE | 2019-03-02 10:00 | NUR ---
RN Rounds Patient resting in bed at this time. Patient in no signs of distress. Patient not in pain. Safety precautions enforced. Call light in reach.
--- NOTE | 2019-03-02 11:17 | NUR ---
PRasheedT. NOTES AFTER MULTIPLE ATTEMPTS PATIENT CONTINUES TO REFUSES P.T., STATES FEELING TIRED AND HE HAS BEEN DOING ALL THE EXERCISES, EDUCATED ON IMPORTANCE OF PHYSICAL MOBILITY BUT CONTINUES TO REFUSE, RN AWARE.
--- NOTE | 2019-03-02 12:03 | NUR ---
RN Rounds Patient sleeping at this time. Patient in no signs of distress. No signs noted that patient experiencing pain or discomfort. Safety precautions enforced.
[2019-03-02 12:28] VITALS: BP_SYST 136
--- NOTE | 2019-03-02 14:02 | NUR ---
RN Rounds Patient awake complaining of pain. Patient medicated as ordered. Family members at bedside. Patient in no signs of distress.
--- NOTE | 2019-03-02 15:41 | NUR ---
Nutrition F/U RD reviewed pt's current EMR record including diet Hx, physician notes, nursing notes, pertinent labs/meds/procedures, care trends, and care activity. Admission Dx: Respiratory failure PMH: COPD, CHF, possible sepsis, FTT per physician notes Current Diet Order/Nutrition Support: Pureed, 2 gm Na, puree x1 day Subjective Info: Pt was seen by ST for swallow eval 03/01/19; ST rec for puree diet w/ thin liquids. Per EMR, PO intake records indicate 20% average x3 meals -- pt is likely not meeting optimal nutritional needs. Per previous RD visit, pt is not interested in ONS. Plans for D/C home w/ hospice per physician orders. 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 *ongoing Expected Outcomes/Goals Monitor appetite and PO intake w/ goal of pt meeting at least 75% of estimated nutritional needs, labs trending WNL, normal GI function, skin integrity/wt maintenance. Dietitian Recommendations * Recommend continuing pureed, 2 gm Na, puree diet Follow Up High Risk: F/U in 2-3 days
--- NOTE | 2019-03-02 15:47 | NUR ---
Dietitian Recommendations * Recommend continuing pureed, 2 gm Na, puree diet LP, RD Please refer to Nutrition F/U for details.
[2019-03-02 15:58] VITALS: BP_SYST 136
--- NOTE | 2019-03-02 16:00 | NUR ---
RN Rounds Patient resting at this time with no signs of distress noted. Patient does not complain of pain. Safety precautions enforced.
[2019-03-02 17:16] VITALS: BP_SYST 121
--- NOTE | 2019-03-02 18:00 | NUR ---
DAUGHTER REFUSED PATIENT TO GO TO [facility] DAUGHTER OF PATIENT REFUSED TO TRANSFER PATIENT TO [facility], SHE WANTS SENIOR VICE PRESIDENT & GENERAL COUNSEL TO CALL HER AND SHE WILL TALK TO HER FAMILY TO DECIDE ABOUT HOSPICE. SPOKE TO [place] AFTER HOURS OUTSIDE SENIOR VICE PRESIDENT & GENERAL COUNSEL AND SAID SHE WILL CALL [facility] REGARDING SNF TRANSFER.
--- NOTE | 2019-03-02 18:09 | NUR ---
RN Rounds Patient eating at this time with family at bedside. Patient in no signs of distress. Patient does not complain of pain. Peripheral IV discontinued, patient with PICC line.
--- NOTE | 2019-03-02 19:05 | NUR ---
PM ASSESSMENT Pt in bed with eyes open resting comfortably. No signs of acute distress or discomfort noted. Family at bedside. Pt alert and oriented x 4 and able to verbalize needs. Pt on 2L O2 via NC, tolerating well with o2 sats @ 95% and even and unlabored breathing. Pt has LANCE picc line, saline locked at this time. Safety precautions enforced. Pt doesn't verbalize any needs at this time. Bed is locked and in lowest position, call light within reach, will cont to monitor pt.
--- NOTE | 2019-03-02 19:18 | NUR ---
Closing Note Patient endorsed to maintenance technician 2nd shift RN using SBAR report. Patient in no signs of distress at this time.
--- NOTE | 2019-03-02 19:45 | NUR ---
Call placed to HCP-Dater Assembler: Call placed to and talked to Singh and informed her that the daughter of this patient changed her mind and agreed for the patient to go to SNF with hospice per AM CN. Per Singh, will let Rachelle lyonss, the Dater Assembler.
[2019-03-02 20:00] VITALS: BP_SYST 133
--- NOTE | 2019-03-02 21:05 | NUR ---
Received a call from Rachelle Litigation Attorney Associate of HCP: Litigation Attorney Associate of HCP Rachelle, called and informed us that she talked to the Daughter Norma and she doesn't want the patient to go to [facility]. Rachelle PIERRE gave the name of two SNF: [facility] and [facility]. She also gave the choice of [facility]. Rachelle PIERRE stated that daughter will look at that places. The daughter also stated that she wants to bring the patient home but not this time because there is a gas leak at home that needs to be fixed. Will let primary nurse aware.
[2019-03-02] MEDS: CEFTRIAXONE SOD 1 GM/ D5W 50 ML IV SCH ×2 (21:17)
[2019-03-03 00:28] VITALS: BP_SYST 118
[2019-03-03] MEDS: HYDROcodone/ACETAMIN 5-325 MG TAB (NORCO/ VICODIN) PO PRN ×3 (02:08→13:33)
--- NOTE | 2019-03-03 02:08 | NUR ---
Pt c/o of 6/10 lower back pain at this time. [place] 5-325 mg tablet administered per MD order at this time. Pt tolerated medication well. Will reassess pt and cont to monitor.
--- NOTE | 2019-03-03 05:15 | NUR ---
Pt cleaned at this time and chucks changed. Pt had a bowel movement. Pt tolerated cleaning well. Will cont to monitor pt.
[2019-03-03] MEDS: IPRATROPIUM BROM 0.5 MG/2.5 ML VIAL.NEB (ATROVENT) INH SCH ×3 (07:00→19:00)
[2019-03-03] MEDS: ALBUTEROL SULFATE 0.083% 2.5 MG/3 ML VIAL.NEB INH SCH ×3 (07:00→19:00)
--- NOTE | 2019-03-03 07:15 | NUR ---
ENDORSEMENT Report given to oncoming dayshift RN using SBAR format and pt care was endorsed. No signs of acute distress or discomfort noted.
[2019-03-03 08:00] VITALS: BP_SYST 123
[2019-03-03] MEDS: FAMOTIDINE PF 20 MG/2 ML VIAL IVP SCH ×2 (09:24→21:41)
[2019-03-03] MEDS: PREDNISONE 20 MG TABLET PO SCH ×2 (09:25→21:41)
[2019-03-03] MEDS: DILTIAZEM HCL 240 MG CAP.SR.24H PO SCH (09:25)
[2019-03-03] MEDS: ENOXAPARIN SODIUM 40 MG/0.4 ML SYRINGE SQ SCH (09:26)
[2019-03-03] MEDS: guaiFENesin/DEXTROMETHORPHAN 1 EACH TAB.ER.12H PO SCH ×2 (09:28→21:41)
[2019-03-03 11:03] VITALS: BP_SYST 147
--- NOTE | 2019-03-03 14:02 | NUR ---
Hospice order Noted home with hospice order. Called Aaliyah HCP CM. She is aware of the order. Plan is for patient to go home with his daughter under the care of [facility].
--- NOTE | 2019-03-03 14:12 | NUR ---
PHYSICAL THERAPY CO-SIGN The Physical Therapy Progress Notes documented by Costumed Character Entertainer have been reviewed. Reviewed/Co-Signed by: Asim Calabrese PT Documentation Done by: MARTHA GRANT PTA Addendum: 03/03/19 at 1413 by Asim Calabrese PT Amended: Links added.
[2019-03-03 15:37] VITALS: BP_SYST 125
[2019-03-03] MEDS: ALPRAZolam 0.25 MG TABLET PO PRN (16:33)
[2019-03-03 20:00] VITALS: BP_SYST 157
--- NOTE | 2019-03-03 20:00 | NUR ---
ASSUMED CARE. RECEIVED ALERT,ORIENTED. AFEBRILE, NOT IN ACUTE DISTRESS. NO PAIN OR DISCOMFORT NOTED AT THIS GAMALIEL. SAO2=98% ON 3 LPM O2 VIA NC. PICC LINE TO THE RIGHT UPPER ARM INTACT. SINUS RHYTHM AT 90'S/MINUTE ON THE MONITOR. CONDOM CATHETER DRAINING CLEAR YELLOW URINE. PT. FOR DISCHARGE HOME WITH HOSPICE CARE. ROSE KEBEDEEL IN THE UNIT AND SAID ETA IS 2245. DAUGHTER AT BEDSIDE. VS STABLE, WILL CONTINUE TO MONITOR. NEEDS ATTENDED.
--- NOTE | 2019-03-03 20:55 | NUR ---
ROSE NURSE WILLOW CONTACTED RE: PICC LINE TO BE DISCONTINUED OR NOT. LEFT MESSAGE IN VOICEMAIL.
--- NOTE | 2019-03-03 21:03 | NUR ---
ROSE MONTIEL CALLED BY RAKER BUFFING WHEEL JOSIE. SHE SPOKE WITH MARLENE WATSON AND SHE WAS TOLD THAT THEY WON'T BE NEEDING THE PICC LINE AND HAS TO BE DISCONTINUED.
[2019-03-03] MEDS: CEFTRIAXONE SOD 1 GM/ D5W 50 ML IV SCH ×2 (21:41)
--- NOTE | 2019-03-03 21:41 | NUR ---
DUE MEDICATIONS GIVEN.
--- NOTE | 2019-03-03 22:54 | NUR ---
[facility] HERE TO MDS RN PT. REPORT GIVEN TO DENNYS AGUILERA.
[2019-03-03 23:00] VITALS: BP_SYST 116
--- NOTE | 2019-03-03 23:00 | NUR ---
PICC LINE DISCONTINUED. CATHETER INTACT. PRESSURE DRESSING APPLIED TO SITE. DISCHARGED STABLE. VERBAL AND WRITTEN AFTERCARE INSTRUCTIONS GIVEN BY ROSE DAUGHERTY EARLIER TO PT.AND DAUGHTER.
--- NOTE | 2019-03-03 23:05 | NUR ---
CONDOM CATHETER KEPT IN PLACE PER PT.AND FAMILY'S REQUEST.
--- NOTE | 2019-03-03 23:11 | NUR ---
LEFT UNIT VIA CRISTINA.
== END 2019-03-03 23:15 | disposition hospice, home (50) | DRG 871 ==
LOC: SED 19:07 → SIC 02-25 02:17 → STU 02-28 11:50
PROVIDERS: ADMIT Internal Medicine Hospice and Palliative Medicine; ATTEND Internal Medicine Hospice and Palliative Medicine
PROC: 02HV33Z Insertion of Infusion Device into Superior Vena Cava, Percutaneous Approach (ICD-10-PCS; principal; 2019-02-25)
PROC: B548ZZA Ultrasonography of Superior Vena Cava, Guidance (ICD-10-PCS; 2019-02-25)
PROC: 5A09357 Assistance with Respiratory Ventilation, Less than 24 Consecutive Hours, Continuous Positive Airway Pressure (ICD-10-PCS; 2019-02-25)
PROC: 5A09357 Assistance with Respiratory Ventilation, Less than 24 Consecutive Hours, Continuous Positive Airway Pressure (ICD-10-PCS; 2019-02-26)
DX: A41.9 Sepsis, unspecified organism (principal); J18.9 Pneumonia, unspecified organism; J96.02 Acute respiratory failure with hypercapnia; J44.0 Chronic obstructive pulmonary disease with (acute) lower respiratory infection; E87.2 Acidosis; Z68.1 Body mass index [BMI] 19.9 or less, adult; R64 Cachexia; J44.1 Chronic obstructive pulmonary disease with (acute) exacerbation; R62.7 Adult failure to thrive; G89.29 Other chronic pain; F17.210 Nicotine dependence, cigarettes, uncomplicated; F41.9 Anxiety disorder, unspecified; M54.9 Dorsalgia, unspecified; I50.9 Heart failure, unspecified; Z79.899 Other long term (current) drug therapy; Z79.01 Long term (current) use of anticoagulants; Z82.49 Family history of ischemic heart disease and other diseases of the circulatory system
CPT/HCPCS: 36415; 36600; 71045; 76700-TC; 80048; 80053; 82150-TC; 82803-TC; 83605; 83690-TC; 83880; 84484; 85025; 86710; 87040-TC; 87081; 92610-GN; 93005; 93306; 94640; 94660; 94760; 96374; 97110-GP; 97530-GP; 99285; C1751; G0378; J0456; J0696; J1030; J1650; J1885; J2405; J2930; J3490; J7050; J7060; J7512; J7613; J7620; J7626